=== PATIENT | male | born 1975 | race Hispanic/Latino ===

== ENCOUNTER 2025-06-28 21:06 | Emergency (ER) | payer SELFPAY ==
[2025-06-28 21:09] VITALS: BP 142/97
[2025-06-28 23:20] VITALS: BMI 28.2
[2025-06-28 23:22] VITALS: BP 135/83
--- NOTE | 2025-06-29 00:02 | ED.GENMED ---
History of Present Illness
<UMESH Newman - Last Filed: 06/29/25 00:13>
General
Chief Complaint: Ear Problem
Source: patient and spouse
Exam Limitations: none
Time Seen by Provider: 06/28/25 23:33
Nursing documentation reviewed up to this point in time: agreed with
History of Present Illness
History of Present Illness:
Patient is a 49 year old male with no significant PMH who presents with left ear pain since Monday. Patient reports using ibuprofen and OTC ear drops with no relief. Denies fever, chills, sinus pain, cough, rhinorrhea.
Past History
<UMESH Newman - Last Filed: 06/29/25 00:13>
Past History
ED Past Medical History: None
ED Past Surgical History: Orthopedic (leg fracture) and Other (Hernia repair)
Social History
Tobacco: Non-smoker
Alcohol: None
Personal:
Living: with family
Employment: Employed
Family History
Family History: CAD
Review of Systems
<UMESH Newman - Last Filed: 06/29/25 00:13>
Review of Systems
Allergies reviewed?: Yes
All Other Systems: ROS reviewed and negative except as documented in HPI and ROS
Constitutional: Reports no symptoms
EENT: Reports other (left ear pain)
Respiratory: Reports no symptoms
Cardiac: Reports no symptoms
ABD/GI: Reports no symptoms
: Reports no symptoms
Musculoskeletal: Reports no symptoms
Skin: Reports no symptoms
Neurological: Reports no symptoms
Endocrine: Reports no symptoms
Hematologic/Lymphatic: Reports no symptoms
Psychiatric: Reports no symptoms
Phy Exam
<UMESH Newman - Last Filed: 06/29/25 00:13>
General Physical Exam
General Presentation: well appearing
General Skin: warm and dry
General Habitus: normal
General Mental: alert
ENT Exam
ENT Exam: other (left ear canal stenosis, pain with tragus manipulation)
Eye Exam
Eye Exam: PERRL
Course
<Delores Moreira STPA - Last Filed: 06/29/25 00:13>
Orders/Labs/Results
Orders:
Orders
06/28/25 23:51
Ketorolac [Toradol] 60 mg IM NOW STA
06/29/25 00:29
Neomycin/Polymyxin/Hc [Cortisporin Otic Suspension] See Dose Instructions OTIC NOW STA
Vital Signs
Initial and Last Documented VS:
Initial Vital Signs
Temp Pulse Resp BP Pulse Ox
98.6 F 77 18 142/97 96
06/28/25 21:09 06/28/25 21:09 06/28/25 21:09 06/28/25 21:09 06/28/25 21:09
Last Documented Vital Signs
Temp Pulse Resp BP Pulse Ox
98.8 F 73 19 135/83 98
06/28/25 23:22 06/28/25 23:22 06/28/25 23:22 06/28/25 23:22 06/29/25 00:02
<Dottie Khan DO - Last Filed: 06/29/25 07:45>
Orders/Labs/Results
Orders:
Orders
06/28/25 23:51
Ketorolac [Toradol] 60 mg IM NOW STA
06/29/25 00:29
Neomycin/Polymyxin/Hc [Cortisporin Otic Suspension] See Dose Instructions OTIC NOW STA
Vital Signs
Initial and Last Documented VS:
Initial Vital Signs
Temp Pulse Resp BP Pulse Ox
98.6 F 77 18 142/97 96
06/28/25 21:09 06/28/25 21:09 06/28/25 21:09 06/28/25 21:09 06/28/25 21:09
Last Documented Vital Signs
Temp Pulse Resp BP Pulse Ox
98.8 F 73 19 135/83 98
06/28/25 23:22 06/28/25 23:22 06/28/25 23:22 06/28/25 23:22 06/29/25 00:02
<UMESH Newman - Last Filed: 06/29/25 00:13>
MDM/Problems Addressed
Differential Diagnosis Includes:
Otitis media, otitis external, dental abscess
MDM/Problems Addressed:
Left ear pain
<UMESH Newman - Last Filed: 06/29/25 00:13>
*Pulse Oximetry
SaO2: 98
Oxygen Mode of Delivery: Room air
Patient hypoxic: no
*Critical Care Note
Total Time (30-74mins, 75-104mins- exclusive of procedures): Not Applicable
ED Attending Note
<UMESH Newman - Last Filed: 06/29/25 00:13>
-
Portions of this chart may have been created with voice recognition software.� Occasional wrong word or��sound alike� substitutions may have occurred due to the inherent limitations of voice recognition software.
<Dottie Khan DO - Last Filed: 06/29/25 07:45>
ED Attending Note
Patient seen and examined by attending physician: Yes
I performed the substantive portion of visit, reviewed & personally made and approve the management plan that is documented in note by myself or PAOLA.: Yes
ED Attending Note:
Note:
CHIEF COMPLAINT(S)
Ear pain since Monday.
HISTORY OF PRESENT ILLNESS
The patient is a 49-year-old male who presents with left ear pain that began on [place]. He denies any fever or congestion and reports using [id number] ear drops without significant relief.
He has been taking ibuprofen 200 mg intermittently for pain with last dose at 7 PM.
Upon review of records patient presented to this ED in 2019 with similar complaints of ear pain, at that time right ear and diagnosed with right otitis externa.
PHYSICAL EXAM
General: Alert, no acute distress. is accompanying.
Ear, Nose, Mouth and Throat: Right TM and canal are clear. Moderate pain when tugging on the left pinna. Left canal significantly stenosed with scant whitish exudate. TM is obscured. Nares are patent without rhinorrhea. Posterior pharynx is
clear.
Skin: Warm, dry.
Head: Normocephalic, atraumatic. There is no dental tenderness. No facial swelling.
Neck: Supple, trachea midline. No adenopathy. Nontender.
Cardiovascular: Normal peripheral perfusion, no edema. Regular rate and rhythm.
Respiratory: Respirations are non-labored. Lungs are clear to auscultation.
Gastrointestinal: Abdomen nondistended.
Back: Normal range of motion, normal alignment.
Musculoskeletal: Normal range of motion, normal strength.
Neurological: Alert and oriented to person, place, time, and situation, no focal neurological deficit observed.
Psychiatric: Cooperative, appropriate mood & affect.
PLAN
Exam notable for acute left otitis externa.
Will plan to place a Guzman ear wick and initiate Cortisporin otic suspension drops.
Will topically anesthetize the ear canal with a few drops of 1% plain lidocaine. Will also give an IM dose of Toradol for pain.
DIFFERENTIAL DIAGNOSIS
The Differential Diagnosis includes, in no particular order and is not limited to:
1. Otitis Externa (Swimmers Ear)
2. Acute Otitis Media
3. Foreign Body in Ear Canal
4. Eustachian Tube Dysfunction
5. Mastoiditis
6. Ear Canal Obstruction or Cerumen Impaction
7. Tympanic Membrane Perforation
8. Temporomandibular Joint Disorders
9. Sinusitis
10. Trigeminal Neuralgia
00:35
After Toradol and topical lidocaine patient is much more comfortable. Guzman ear wick inserted into the left ear canal without difficulty.
Will initiate Cortisporin otic suspension.
Recommend continuing ibuprofen as needed for pain but increase dose to 600 mg 3-4 times daily as needed.
Dry ear precautions and no Q-tip.
Prompt follow-up with PCP for recheck.
Discharge Plan
Departure
Patient Disposition: Home (Routine Discharge)
Date of Disposition: 06/29/25
Time of Disposition: 00:35
Patient with high blood pressure during this ER visit?: No
Condition: Good
Discharge Problem:
Acute otitis externa of left ear
Instructions: Outer Ear Infection (DC)
Prescriptions:
New
Cortisporin-TC 3.3-3-10-0.5 mg/mL drops,suspension
4 drp otic (ear) QID Qty: 10 0RF
Discontinued
amoxicillin-pot clavulanate 1 TABLET tablet
1 tab PO Q12 Qty: 20 0RF
acbdnmlv-oiafbceho-VS 1 DROP drops,suspension
5 drp otic (ear) TID Qty: 1 0RF
Referrals:
NONE,* [Family Provider, Internal Medicine] - Call in 1-3 days for appt
Interventions
Interventions:
*Risk Screen - Suicide Last Done: 06/28/25 21:10
*General Assessment Last Done: 06/28/25 23:20
*Neglect/Abuse Screening Last Done: 06/28/25 21:10
*ED- Fall Risk Assessment Last Done: 06/28/25 23:20
*ED COVID-19 Vaccine History Last Done: 06/28/25 23:20
*Nursing Disposition Last Done: 06/29/25 00:54
Discharge Date and Time
Discharge Date/Time: 06/29/25 00:55
Print Language: INDONESIAN
[2025-06-29] MEDS: TORADOL 60 MG IM (00:09)
[2025-06-29] MEDS: CORTISPORIN OTIC SUSPENSION 4 DROP OTIC (00:38)
== END 2025-06-29 00:55 | disposition home or self-care (01) ==
LOC: EMR 21:06
PROVIDERS: EMERGENCY PHYSICIAN Emergency Medicine
DX: H60.502 Unspecified acute noninfective otitis externa, left ear (principal)
CPT/HCPCS: 99284; 96372